=== PATIENT | female | born 1975 | race Caucasian/White ===

== ENCOUNTER → 2016-07-20 | Outpatient (CLI) | payer OTHER ==
[2016-07-20 10:26] LABS: HEMOGLOBIN 14.9 gm/dl (12.3-15.3); RED BLOOD COUNT 5.22 M/UL (4.00-5.10); WHITE BLOOD COUNT 8.4 K/UL (4.5-11.0)
== END ==
LOC: LAB 09:48
PROVIDERS: Internal Medicine
DX: R52 Pain, unspecified (principal); M25.50 Pain in unspecified joint; Z79.899 Other long term (current) drug therapy
CPT/HCPCS: 36415; 82550; 84550; 85027; 86039; 86140; 86200; 86235; 86431

== ENCOUNTER 2020-05-18 16:03 | Emergency (ER) | payer OTHER ==
[~2020-05-18 16:03] MED LIST: GLUCOPHAGE1000 MG PO; PRINIVIL10 MG PO; WELLBUTRIN XL300 M1 PO
== END 2020-05-18 22:23 | disposition home or self-care (01) ==
LOC: ER1 16:03
DX: U07.1 COVID-19 (principal); I10 Essential (primary) hypertension
CPT/HCPCS: 71045; 93005; 99285; M0239

== ENCOUNTER → 2021-03-09 | Outpatient (CLI) | payer BC | LOC: MAMO 07:40 | DX: Z12.31 Encounter for screening mammogram for malignant neoplasm of breast (principal) | CPT/HCPCS: 77063; 77067 ==

== ENCOUNTER → 2021-05-06 | Outpatient (CLI) | payer BC | LOC: KOH-I 05-03 09:30 | DX: R91.1 Solitary pulmonary nodule (principal); K76.0 Fatty (change of) liver, not elsewhere classified | CPT/HCPCS: 71250 ==